=== PATIENT | male | born 1960 | race Caucasian/White ===

== ENCOUNTER 2016-06-14 19:34 | Observation (INO) | payer OTHER ==
[~2016-06-14] VITALS: Ht 177.8 cm; Wt 89.5 kg
[~2016-06-14 19:34] MED LIST: ADALAT CC 60 MG60 MG PO; ADALAT CC90 MG PO; ANTIVERT25 MG PO; APRESOLINE25 MG PO; BYSTOLIC10 MG PO; CARDIZEM120 MG PO; CARVEDILOL6.25 MG PO; CLONIDINE HCL0.1 MG PO; CLONIDINE HCL0.2 MG PO; DYAZIDE, MA1 CAPSULE PO; HYDROCHLOROTHIA25 MG PO; K-DUR20 MEQ PO; LO-DOSE ASPIRIN81 M1 PO; LOSARTAN POTAS100 MG PO; METOPROLOL TART50 MG PO; NIFEDIPINE ER90 MG PO; NITROSTAT0.4 MG SL; NORCO 5/3251 TABLET PO; NORVASC10 MG PO; PERCOCET 5/31 TABLET PO; PREDNISONE10 MG PO; PREDNISONE20 MG PO; SPIRONOLACTONE50 MG PO; TAMSULOSIN HCL0.4 MG PO; TRAMADOL HCL50 MG PO; TRIAMTERENE-HC1 EACH PO; XARELTO15 MG PO; XARELTO20 MG PO
[2016-06-14 20:11] LABS: EOSINOPHIL COUNT 0.1 K/uL (0-0.3); HEMATOCRIT 39.4 % (38.0-50.0); IMMATURE GRANULOCYTE (%) 0.5 % (0.0-0.7); IMMATURE GRANULOCYTE COUNT 0.5 K/uL; LYMPHOCYTE COUNT 2.4 K/uL (1.0-2.8); MCH 33.3 PG (29.0-34.0); MCV 94.9 FL (86-99); MEAN PLAT.VOLUME 9.8 uM^3 (9.0-12.4); MONOCYTE (%) 12.6 % (3-12); MONOCYTE COUNT 1.2 K/uL (0-0.8); NEUTROPHIL (%) 59.7 % (45-76); NEUTROPHIL COUNT 5.7 K/uL (1.8-6.4); PLATELET COUNT 255 K/uL (156-360); RBC DIS.WIDTH-CV 13.3 % (11.8-14.6); RBC DIS.WIDTH-SD 44.3 % (39-53); RED BLOOD COUNT 4.15 M/uL (4.00-5.50); WHITE BLOOD COUNT 9.5 K/uL (4.1-10.2)
[2016-06-14 20:28] LABS: CHLORIDE 111 mEq/L (99-109); POTASSIUM 3.5 mEq/L (3.7-5.4); SODIUM 142 mEq/L (136-147)
[2016-06-14 20:30] LABS: GLUCOSE 91 mg/dL (70-99)
[2016-06-14 20:31] LABS: ANION GAP 9 MEQ/L (2-14)
[2016-06-14 20:32] LABS: TOTAL BILIRUBIN 0.4 mg/dL (0.0-1.0)
[2016-06-14 20:33] LABS: ALKALINE PHOSPHATASE 71 IU/L (3-129)
[2016-06-14 20:34] LABS: GFR ESTIMATE (CALCULATED) 52 mL/min/
[2016-06-14 20:35] LABS: TROP-I INTERPRETATION NEGATIVE; TROPONIN-I 0.01 ng/mL (0.0-0.30); UREA NITROGEN (BUN) 18 mg/dL (9-23)
[2016-06-14] MEDS ORDERED: BISOPROLOL-HCT1 EAC2 PO (21:31)
[2016-06-14] MEDS ORDERED: LIPITOR10 MG PO (21:31)
[2016-06-14] MEDS ORDERED: SPIRONOLACTONE25 MG PO (21:32)
[2016-06-14] MEDS ORDERED: CATAPRES-TTS 31 EACH TD (21:32)
[2016-06-15 00:30] VITALS: BP 180/91
[2016-06-15 03:15] LABS: TROP-I INTERPRETATION NEGATIVE; TROPONIN-I < 0.01 ng/mL (0.0-0.30)
[2016-06-15 04:32] VITALS: BP 171/104
[2016-06-15 08:23] LABS: TROP-I INTERPRETATION NEGATIVE; TROPONIN-I < 0.01 ng/mL (0.0-0.30)
[2016-06-15 08:35] VITALS: BP 160/96
[2016-06-15 09:08] LABS: ANION GAP 9 MEQ/L (2-14); CHLORIDE 108 MEQ/L (99-109); POTASSIUM 3.2 MEQ/L (3.7-5.4); SAMPLE HEMOLYSIS CHECK 0; SAMPLE ICTERIC CHECK 0; SAMPLE LIPEMIA CHECK 0; SODIUM 142 MEQ/L (136-147)
[2016-06-15 09:13] LABS: GFR ESTIMATE (CALCULATED) 56 mL/min/; GLUCOSE 99 mg/dL (70-99); UREA NITROGEN (BUN) 15 mg/dL (9-23)
[2016-06-15 11:45] VITALS: BP 148/76
== END 2016-06-15 14:45 | disposition home or self-care (01) ==
LOC: EME → EDBD 19:34 → EME 19:34 → 5WEST 23:03 → EDOF 23:03 → 5WEST 06-15 00:11
PROVIDERS: Emergency Medicine; Hospitalist; Physician Assistant
DX: R07.9 Chest pain, unspecified (principal); I16.0 Hypertensive urgency; I10 Essential (primary) hypertension; E78.5 Hyperlipidemia, unspecified; E87.6 Hypokalemia; F17.200 Nicotine dependence, unspecified, uncomplicated
CPT/HCPCS: 71020; 80048; 80053; 84484; 85025; 93005; 99281; 99285; G0378; J0360; J1650

== ENCOUNTER 2017-01-09 21:52 | Inpatient (IN) | payer OTHER ==
[~2017-01-09] VITALS: Ht 172.7 cm; Wt 88.2 kg
[~2017-01-09 21:52] MED LIST changes: +BISOPROLOL-HCT1 EAC1 PO; +CATAPRES-TTS 31 EACH TD; +LIPITOR10 MG PO; +SPIRONOLACTONE25 MG PO
[2017-01-09 22:47] LABS: HEMATOCRIT 44.4 % (38.0-50.0); MCH 33.4 PG (29.0-34.0); MCV 98.2 FL (86-99); MEAN PLAT.VOLUME 10.4 uM^3 (9.0-12.4); PLATELET COUNT 222 K/uL (156-360); RBC DIS.WIDTH-CV 13.2 % (11.8-14.6); RBC DIS.WIDTH-SD 47.1 % (39-53); RED BLOOD COUNT 4.52 M/uL (4.00-5.50); WHITE BLOOD COUNT 9.9 K/uL (4.1-10.2)
[2017-01-09 22:58] LABS: CHLORIDE 110 mEq/L (99-109); POTASSIUM 3.7 mEq/L (3.7-5.4); SODIUM 142 mEq/L (136-147)
[2017-01-09 23:00] LABS: GLUCOSE 109 mg/dL (70-99)
[2017-01-09 23:02] LABS: ANION GAP 5 MEQ/L (2-14)
[2017-01-09 23:04] LABS: GFR ESTIMATE (CALCULATED) 48 mL/min/
[2017-01-09 23:05] LABS: UREA NITROGEN (BUN) 15 mg/dL (9-23)
[2017-01-09 23:06] LABS: TROP-I INTERPRETATION NEGATIVE; TROPONIN-I < 0.01 ng/mL (0.0-0.30)
[2017-01-09] MEDS ORDERED: CATAPRES-TTS 31 EACH TD (23:08)
[2017-01-09] MEDS ORDERED: APRESOLINE25 MG PO (23:10)
[2017-01-10] VITALS (7 sets, daily range): BP systolic 130–190; BP diastolic 75–99
[2017-01-10 05:39] LABS: HEMATOCRIT 41.7 % (38.0-50.0); MCH 35.2 PG (29.0-34.0); MCHC 35.3 G/DL (30.0-36.0); MCV 99.8 FL (86-99); MEAN PLAT.VOLUME 10.5 uM^3 (9.0-12.4); PLATELET COUNT 198 K/uL (156-360); RBC DIS.WIDTH-CV 13.3 % (11.8-14.6); RBC DIS.WIDTH-SD 49.1 % (39-53); RED BLOOD COUNT 4.18 M/uL (4.00-5.50); WHITE BLOOD COUNT 8.2 K/uL (4.1-10.2)
[2017-01-10 05:59] LABS: TROP-I INTERPRETATION NEGATIVE; TROPONIN-I < 0.01 ng/mL (0.0-0.30)
[2017-01-10 06:03] LABS: ALKALINE PHOSPHATASE 54 IU/L (3-129); ANION GAP 3 MEQ/L (2-14); CHLORIDE 108 MEQ/L (99-109); GFR ESTIMATE (CALCULATED) > 59 mL/min/; GLUCOSE 104 mg/dL (70-99); POTASSIUM 3.8 MEQ/L (3.7-5.4); SAMPLE HEMOLYSIS CHECK 0; SAMPLE ICTERIC CHECK 0; SAMPLE LIPEMIA CHECK 0; SODIUM 142 MEQ/L (136-147); TOTAL BILIRUBIN 0.4 MG/DL (0.0-1.0); UREA NITROGEN (BUN) 13 mg/dL (9-23)
[2017-01-10 12:11] LABS: TROP-I INTERPRETATION NEGATIVE; TROPONIN-I < 0.01 ng/mL (0.0-0.30)
[2017-01-11 05:02] VITALS: BP 148/78
[2017-01-11 09:12] VITALS: BP 166/68
[2017-01-11] MEDS ORDERED: NICOTINE PATCH1 EAC2 TD (11:47)
[2017-01-11] MEDS ORDERED: NICORELIEF2 MG BC (11:47)
[2017-01-11] MEDS ORDERED: APRESOLINE50 MG PO (11:47)
[2017-01-11] MEDS ORDERED: HYDROCHLOROTHIA25 MG PO (11:48)
[2017-01-11 11:58] VITALS: BP 142/77
== END 2017-01-11 16:36 | disposition home or self-care (01) | DRG 305 ==
LOC: EME 21:52 → EDOF 01-10 03:17 → ENRESERV 01-10 03:27 → 5WEST 01-10 04:22 → CANRESERV 01-10 12:27 → ENRESERV 01-10 12:27 → 5WEST 01-11 16:36
PROVIDERS: Internal Medicine
DX: I16.1 Hypertensive emergency (principal); R07.89 Other chest pain; R00.1 Bradycardia, unspecified; I12.9 Hypertensive chronic kidney disease with stage 1 through stage 4 chronic kidney disease, or unspecified chronic kidney disease; N18.9 Chronic kidney disease, unspecified; I71.2 Thoracic aortic aneurysm, without rupture; I82.C22 Chronic embolism and thrombosis of left internal jugular vein; E78.00 Pure hypercholesterolemia, unspecified; I25.2 Old myocardial infarction; Z86.73 Personal history of transient ischemic attack (TIA), and cerebral infarction without residual deficits; M19.90 Unspecified osteoarthritis, unspecified site; N40.0 Benign prostatic hyperplasia without lower urinary tract symptoms; H54.42 Blindness, left eye, normal vision right eye; F17.200 Nicotine dependence, unspecified, uncomplicated; Z79.82 Long term (current) use of aspirin; Z71.6 Tobacco abuse counseling
CPT/HCPCS: 71020; 80048; 80053; 84484; 85027; 93005; 99281; 99285; J1644; J2270

== ENCOUNTER 2017-03-07 08:29 | Emergency (ER) | payer OTHER ==
[~2017-03-07] VITALS: Ht 172.7 cm; Wt 87.6 kg
[~2017-03-07 08:29] MED LIST changes: +APRESOLINE50 MG PO; +NICORELIEF2 MG BC; +NICOTINE PATCH1 EAC2 TD
[2017-03-07 09:53] LABS: BASOPHIL COUNT 0.1 K/uL (0-0.1); EOSINOPHIL (%) 0.7 % (0-5); EOSINOPHIL COUNT 0.1 K/uL (0-0.3); HEMATOCRIT 44.8 % (38.0-50.0); IMMATURE GRANULOCYTE (%) 0.5 % (0.0-0.7); IMMATURE GRANULOCYTE COUNT 0.1 K/uL; INSTRUMENT ABS NEUTROPHIL CT 7.4 K/uL; LYMPHOCYTE COUNT 1.2 K/uL (1.0-2.8); MCH 33.1 PG (29.0-34.0); MCHC 33.7 G/DL (30.0-36.0); MCV 98.2 FL (86-99); MEAN PLAT.VOLUME 9.9 uM^3 (9.0-12.4); MONOCYTE (%) 9.8 % (3-12); NEUTROPHIL (%) 76.5 % (45-76); NEUTROPHIL COUNT 7.4 K/uL (1.8-6.4); PLATELET COUNT 223 K/uL (156-360); RBC DIS.WIDTH-CV 12.7 % (11.8-14.6); RBC DIS.WIDTH-SD 45.9 % (39-53); RED BLOOD COUNT 4.56 M/uL (4.00-5.50); WHITE BLOOD COUNT 9.7 K/uL (4.1-10.2)
[2017-03-07 09:59] LABS: PROTHROMBIN TIME 11.5 SEC (10.2-12.9)
[2017-03-07 10:02] LABS: PTT 32.7 SEC (25-37)
[2017-03-07 10:11] LABS: CHLORIDE 108 mEq/L (99-109); POTASSIUM 3.6 mEq/L (3.7-5.4); SODIUM 142 mEq/L (136-147)
[2017-03-07 10:12] LABS: GLUCOSE 111 mg/dL (70-99)
[2017-03-07 10:13] LABS: TROP-I INTERPRETATION NEGATIVE; TROPONIN-I < 0.01 ng/mL (0.0-0.30)
[2017-03-07 10:14] LABS: ANION GAP 11 MEQ/L (2-14)
[2017-03-07 10:16] LABS: GFR ESTIMATE (CALCULATED) > 59 mL/min/
[2017-03-07 10:17] LABS: UREA NITROGEN (BUN) 19 mg/dL (9-23)
[2017-03-07 12:27] VITALS: BP 147/80
== END 2017-03-07 12:30 | disposition home or self-care (01) ==
LOC: EME 08:29
PROVIDERS: Emergency Medicine
DX: R20.2 Paresthesia of skin (principal); I10 Essential (primary) hypertension; I25.2 Old myocardial infarction; I71.4 Abdominal aortic aneurysm, without rupture; F17.200 Nicotine dependence, unspecified, uncomplicated; H54.62 Unqualified visual loss, left eye, normal vision right eye; Z79.82 Long term (current) use of aspirin
CPT/HCPCS: 70450; 70551; 71010; 80048; 84484; 85025; 85610; 85730; 93005; 99281; 99285

== ENCOUNTER 2017-03-11 23:32 | Emergency (ER) | payer OTHER ==
[~2017-03-11] VITALS: Ht 172.7 cm; Wt 89.6 kg
[2017-03-12 00:13] LABS: HEMATOCRIT 42.8 % (38.0-50.0); MCH 33.4 PG (29.0-34.0); MCHC 33.9 G/DL (30.0-36.0); MCV 98.6 FL (86-99); MEAN PLAT.VOLUME 9.9 uM^3 (9.0-12.4); PLATELET COUNT 217 K/uL (156-360); RBC DIS.WIDTH-CV 12.6 % (11.8-14.6); RBC DIS.WIDTH-SD 46.2 % (39-53); RED BLOOD COUNT 4.34 M/uL (4.00-5.50); WHITE BLOOD COUNT 7.6 K/uL (4.1-10.2)
[2017-03-12 00:19] LABS: INTER. NORMALIZED RATIO 0.9; PROTHROMBIN TIME 10.7 SEC (10.2-12.9)
[2017-03-12 00:22] LABS: PTT 33.9 SEC (25-37)
[2017-03-12 00:31] LABS: CHLORIDE 108 mEq/L (99-109); POTASSIUM 3.7 mEq/L (3.7-5.4); SODIUM 141 mEq/L (136-147)
[2017-03-12 00:34] LABS: GLUCOSE 115 mg/dL (70-99)
[2017-03-12 00:35] LABS: ANION GAP 10 MEQ/L (2-14)
[2017-03-12 00:36] LABS: TOTAL BILIRUBIN 0.3 mg/dL (0.0-1.0)
[2017-03-12 00:37] LABS: ALKALINE PHOSPHATASE 76 IU/L (3-129); GFR ESTIMATE (CALCULATED) 52 mL/min/
[2017-03-12 00:38] LABS: UREA NITROGEN (BUN) 23 mg/dL (9-23)
[2017-03-12] MEDS ORDERED: ROBITUSSIN AC,T10 ML PO (04:32)
[2017-03-12] MEDS ORDERED: PROVENTIL HFA6.7 GM IH (04:32)
[2017-03-12 04:37] VITALS: BP 107/59
== END 2017-03-12 04:38 | disposition home or self-care (01) ==
LOC: EME 23:32
DX: J06.9 Acute upper respiratory infection, unspecified (principal); I10 Essential (primary) hypertension; F17.200 Nicotine dependence, unspecified, uncomplicated; I25.2 Old myocardial infarction; Z79.82 Long term (current) use of aspirin
CPT/HCPCS: 71020; 80053; 85027; 85610; 85730; 94640; 99281; 99284

== ENCOUNTER 2017-07-24 23:52 | Emergency (ER) | payer BC ==
[~2017-07-24] VITALS: Ht 172.7 cm; Wt 89.5 kg
[~2017-07-24 23:52] MED LIST changes: +PROVENTIL HFA6.7 GM IH; +ROBITUSSIN AC,T10 ML PO
[2017-07-25 00:39] LABS: HEMATOCRIT 45.2 % (38.0-50.0); HEMOGLOBIN 15.9 G/DL (12.5-16.6); MCH 33.9 PG (29.0-34.0); MCHC 35.2 G/DL (30.0-36.0); MCV 96.4 FL (86-99); PLATELET COUNT 241 K/uL (156-360); RBC DIS.WIDTH-CV 12.6 % (11.8-14.6); RBC DIS.WIDTH-SD 44.8 % (39-53); RED BLOOD COUNT 4.69 M/uL (4.00-5.50); WHITE BLOOD COUNT 10.1 K/uL (4.1-10.2)
[2017-07-25 00:50] LABS: CHLORIDE 109 mEq/L (99-109); POTASSIUM 3.7 mEq/L (3.7-5.4); SODIUM 141 mEq/L (136-147)
[2017-07-25 00:52] LABS: GLUCOSE 116 mg/dL (70-99)
[2017-07-25 00:56] LABS: CREATININE 1.2 mg/dL (0.6-1.3); GFR ESTIMATE (CALCULATED) > 59 mL/min/ (58.99-99999)
[2017-07-25 00:57] LABS: UREA NITROGEN (BUN) 21 mg/dL (9-23)
[2017-07-25 00:58] LABS: TROP-I INTERPRETATION NEGATIVE; TROPONIN-I < 0.01 ng/mL (0.0-0.30)
[2017-07-25] MEDS ORDERED: MOTRIN800 MG PO (04:11)
[2017-07-25 04:26] VITALS: BP 180/101
== END 2017-07-25 04:30 | disposition home or self-care (01) ==
LOC: EME 23:52
DX: R07.89 Other chest pain (principal); I10 Essential (primary) hypertension; I25.2 Old myocardial infarction; Z86.73 Personal history of transient ischemic attack (TIA), and cerebral infarction without residual deficits; F17.200 Nicotine dependence, unspecified, uncomplicated; I71.9 Aortic aneurysm of unspecified site, without rupture
CPT/HCPCS: 71046; 80048; 84484; 85027; 93005; 99281; 99285; J1885; J7030